=== PATIENT | female | born 1970 | race Caucasian/White ===

== ENCOUNTER → 2017-03-28 | Outpatient (CLI) | payer BC ==
[~2017-03-28] MED LIST: FEMCON; LEXAPRO 5MG5 MG PO
== END ==
LOC: MC.RAD 08:51
DX: Z12.31 Encounter for screening mammogram for malignant neoplasm of breast (principal)

== ENCOUNTER → 2018-05-05 | Outpatient (CLI) | payer BC | LOC: MC.RAD 13:40 | DX: Z12.31 Encounter for screening mammogram for malignant neoplasm of breast (principal) ==

== ENCOUNTER → 2019-06-09 | Outpatient (CLI) | payer OTHER | LOC: MC.RAD 13:32 | DX: Z12.31 Encounter for screening mammogram for malignant neoplasm of breast (principal); N63.21 Unspecified lump in the left breast, upper outer quadrant ==

== ENCOUNTER → 2019-06-11 | Outpatient (CLI) | payer OTHER | LOC: MC.RAD 12:29 | DX: N60.02 Solitary cyst of left breast (principal) ==

== ENCOUNTER → 2020-08-12 | Outpatient (CLI) | payer OTHER | LOC: MC.RAD 07:45 | DX: Z12.31 Encounter for screening mammogram for malignant neoplasm of breast (principal) ==

== ENCOUNTER → 2021-06-09 | Outpatient (CLI) | payer BC | LOC: MC.RAD 14:00 | DX: N60.12 Diffuse cystic mastopathy of left breast (principal) ==

== ENCOUNTER → 2021-08-08 | Outpatient (CLI) | payer BC | LOC: MC.RAD 10:04 | DX: Z12.31 Encounter for screening mammogram for malignant neoplasm of breast (principal) ==

== ENCOUNTER → 2024-01-28 | Outpatient (CLI) | payer BC ==
[2005-07-31 10:37] VITALS: BP 128/80; PULSE 98; TEMP 96.9
== END ==
LOC: MC.RAD 07:05
DX: Z12.31 Encounter for screening mammogram for malignant neoplasm of breast (principal); N63.11 Unspecified lump in the right breast, upper outer quadrant

== ENCOUNTER → 2024-01-29 | Outpatient (CLI) | payer BC | LOC: MC.RAD 15:15 | DX: N60.01 Solitary cyst of right breast (principal); R59.0 Localized enlarged lymph nodes ==